=== PATIENT | female | born 1945 | race Caucasian/White ===

== ENCOUNTER 2023-06-07 11:14 | Outpatient (CLI) | payer BC, SELFPAY | END 2023-06-07 11:15 | disposition home or self-care (01) | PROVIDERS: PCP Family Medicine; Visit Provider Family Medicine | DX: Z00.00 Encounter for general adult medical examination without abnormal findings (principal); I10 Essential (primary) hypertension; E55.9 Vitamin D deficiency, unspecified; M81.0 Age-related osteoporosis without current pathological fracture; Z13.1 Encounter for screening for diabetes mellitus; Z11.59 Encounter for screening for other viral diseases | CPT/HCPCS: 80053; 82043; 82570; 86803 ==

== ENCOUNTER 2023-06-29 12:51 | Outpatient (CLI) | payer BC, SELFPAY ==
--- NOTE | 2023-06-29 15:00 | US_ITS ---
Final Report Patient: NATALIA HANSEN Facility:?[facility] Patient ID:?[id number] Site Patient ID:?[id number]. Site :?[id number] Study:?US Abdomen AAA Screening-06/29/2023 1:27:21 PM Ordering Physician:?CALLIE FLORES Final Report: Examination: US abdominal aorta Indication: Abdominal aortic aneurysm screening. Technique: Huffman scale and color Doppler images of the aorta and common iliac arteries are obtained. Comparison: None Findings: Proximal aorta: 2.4 x 2.3 cm Mid aorta: 1.7 x 1.7 cm Distal aorta: 1.5 x 1.5 cm Right common iliac artery: 1.2 x 1.1 cm Left common iliac artery: 1.1 x 1.2 cm Impression: No abdominal aortic aneurysm. Dictated by Alphonse Alvarado MD @ 06/29/2023 2:25:44 PM (Electronic Signature)
== END 2023-06-29 12:52 | disposition home or self-care (01) ==
LOC: US 12:52
PROVIDERS: PCP Family Medicine; Visit Provider Family Medicine
DX: Z13.6 Encounter for screening for cardiovascular disorders (principal); Z87.891 Personal history of nicotine dependence
CPT/HCPCS: 76706